=== PATIENT | male | born 1990 | race American Indian/Alaskan Native ===

== ENCOUNTER 2018-10-26 16:29 | Emergency (ER) | payer SELFPAY ==
--- NOTE | 2018-10-26 16:39 | Emergency Department Report ---
Blank Doc - Documentation Documentation: This is a 28-year-old male that presents with midsternum chest pain with radia tion to back. Denies any SOB. This initial assessment/diagnostic orders/clinical plan/treatment(s) is/are subject to change based on patient's health status, clinical progression and re- assessment by fellow clinical providers in the ED. Further treatment and workup at subsequent clinical providers discretion. Patient/guardians urged not to elope from the ED as their condition may be serious if not clinically assessed and managed. Initial orders include: 1- Patient sent to [facility] for further evaluation and treatment 2- labs 3- EKG
[2018-10-26 16:54] LABS: Basophils # (Auto) 0.1 K/mm3 (0.0-0.1); Basophils % (Auto) 0.8 % (0.0-1.8); Eosinophils # (Auto) 0.3 K/mm3 (0.0-0.4); Eosinophils % (Auto) 3.7 % (0.0-4.3); Hematocrit 44.4 % (35.5-45.6); Hemoglobin 14.7 gm/dl (11.8-15.2); Lymphocytes % (Auto) 21.9 % (13.4-35.0); Mean Corpuscular HGB Conc 33 % (32-34); Mean Corpuscular Hemoglobin 27 pg (28-32); Mean Corpuscular Volume 81 fl (84-94); Monocytes # (Auto) 0.9 K/mm3 (0.0-0.8); Monocytes % (Auto) 9.5 % (0.0-7.3); Platelet Count 236 K/mm3 (140-440); Red Blood Count 5.47 M/mm3 (3.65-5.03); Red Cell Distribution Width 13.5 % (13.2-15.2)
[2018-10-26 17:04] LABS: INR 0.86 (0.87-1.13)
[2018-10-26 17:05] LABS: Partial Thromboplastin Time 26.1 Sec. (24.2-36.6)
[2018-10-26 17:29] LABS: Alanine Aminotransferase 17 units/L (7-56); BUN/Creatinine Ratio 9; Blood Urea Nitrogen 12 mg/dL (9-20); Calcium 9.6 mg/dL (8.4-10.2); Hemolysis Index 11
--- NOTE | 2018-10-26 18:08 | XRay Report ---
PROCEDURE: XR CHEST ROUTINE 2V TECHNIQUE: Frontal and lateral views of the chest HISTORY: Chest Pain COMPARISONS: None FINDINGS: Slight linear scar versus atelectasis left lung base There is no visible pulmonary consolidation. No radiographically visible pneumothorax. No evidence of pleural effusion. Cardiac silhouette size is normal without vascular congestion. No visible acute displaced fracture in the regional skeleton. IMPRESSION: Slight linear scar versus atelectasis left lung base This document is electronically signed by Mark Thompson MD., October 26 2018 06:06:41 PM ET
[2018-10-26] MEDS ORDERED: FLEXERIL PO ONE (20:59)
[2018-10-26] MEDS ORDERED: LIDOCAINE VISCOUS 2% PO ONE (20:59)
[2018-10-26] MEDS ORDERED: BENTYL PO ONE (20:59)
[2018-10-26] MEDS ORDERED: TORADOL IM ONE (20:59)
[2018-10-26] MEDS ORDERED: ALUM-MAG HYDROX-SIMETH 200-200-20MG/5ML PO ONE (20:59)
--- NOTE | 2018-10-26 21:05 | Emergency Department Report ---
ED General Adult HPI - General Chief complaint: Chest Pain Stated complaint: BACK/CHEST PAIN Time Seen by Provider: 10/26/18 16:37 Source: patient Mode of arrival: Ambulatory Limitations: No Limitations - History of Present Illness Initial comments: Pt is a 28 yo male who presents to the ED with c/o upper back pain that began yesterday. He also has substernal CP. He describes the pain as burning sensation. 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 The patient states it hurts to take a deep breath. He denies any urinary sx, fever, N/V, SOB, or any other sx. He states he has never had this previously. The patient states his back pain is worse with movements. He denies any fall, trauma, or injury. He denies any PMHx of cardiac problems, HTN, or DM. He denies any family hx of cardiac problems. He denies any recent long travel by car or plane, recent surgery, or recent immobilization. Severity scale (0 -10): 8 - Related Data Previous Rx's Medication Instructions Recorded Last Taken Type Ibuprofen [Motrin 800 MG tab] 800 mg PO TID PRN #60 tablet 07/07/13 Unknown Rx Famotidine [Pepcid] 20 mg PO DAILY #30 tablet 10/26/18 Unknown Rx Allergies Allergy/AdvReac Type Severity Reaction Status Date / Time No Known Allergies Allergy Unverified 07/07/13 21:27 ED Review of Systems ROS: Stated complaint: BACK/CHEST PAIN Other details as noted in HPI Comment: All other systems reviewed and negative ED Past Medical Hx - Past Medical History Hx Asthma: Yes - Social History Smoking Status: Current Every Day Smoker Substance Use Type: Marijuana - Medications Home Medications: Home Medications Medication Instructions Recorded Confirmed Last Taken Type Ibuprofen [Motrin 800 MG tab] 800 mg PO TID PRN #60 tablet 07/07/13 Unknown Rx Famotidine [Pepcid] 20 mg PO DAILY #30 tablet 10/26/18 Unknown Rx ED Physical Exam - General Limitations: No Limitations General appearance: alert, in no apparent distress - Head Head exam: Present: atraumatic, normocephalic - Eye Eye exam: Present: normal appearance - ENT ENT exam: Present: mucous membranes moist - Neck Neck exam: Present: normal inspection, full ROM. Absent: tenderness - Respiratory Respiratory exam: Present: normal lung sounds bilaterally. Absent: respiratory distress, wheezes, rales, rhonchi, stridor, chest wall tenderness, accessory muscle use, decreased breath sounds, prolonged expiratory - Cardiovascular Cardiovascular Exam: Present: regular rate, normal rhythm, normal heart sounds. Absent: systolic murmur, rubs, gallop - GI/Abdominal GI/Abdominal exam: Present: soft, normal bowel sounds. Absent: distended, tenderness, guarding, rebound, rigid - Back Exam Back exam: Present: normal inspection, full ROM, paraspinal tenderness (moderate bilateral T-spine paraspinal muscle tenderness to palpation, no midline c- spine, t-spine, or l-spine tenderness, no deformity, no step off ) - Neurological Exam Neurological exam: Present: alert, oriented X3, normal gait - Psychiatric Psychiatric exam: Present: normal affect, normal mood - Skin Skin exam: Present: warm, dry, intact ED Course Vital Signs 10/26/18 10/26/18 10/26/18 16:37 20:15 22:14 Temperature 98.6 F 98.4 F 98.6 F Pulse Rate 82 82 66 Respiratory 18 16 16 Rate Blood Pressure 135/74 Blood Pressure 132/76 107/60 [Left] O2 Sat by Pulse 97 95 99 Oximetry ED Medical Decision Making - Lab Data Result diagrams: 10/26/18 16:45 10/26/18 16:45 Lab Results 10/26/18 10/26/18 10/26/18 Range/Units 16:45 16:45 16:45 WBC 9.2 (4.5-11.0) K/mm3 RBC 5.47 H (3.65-5.03) M/mm3 Hgb 14.7 (11.8-15.2) gm/dl Hct 44.4 (35.5-45.6) % MCV 81 L (84-94) fl MCH 27 L (28-32) pg MCHC 33 (32-34) % RDW 13.5 (13.2-15.2) % Plt Count 236 (140-440) K/mm3 Lymph % (Auto) 21.9 (13.4-35.0) % [place] % (Auto) 9.5 H (0.0-7.3) % Eos % (Auto) 3.7 (0.0-4.3) % Baso % (Auto) 0.8 (0.0-1.8) % Lymph # 2.0 (1.2-5.4) K/mm3 [place] # 0.9 H (0.0-0.8) K/mm3 Eos # 0.3 (0.0-0.4) K/mm3 Baso # 0.1 (0.0-0.1) K/mm3 Seg Neutrophils % 64.1 (40.0-70.0) % Seg Neutrophils # 5.9 (1.8-7.7) K/mm3 PT 12.2 (12.2-14.9) Sec. INR 0.86 L (0.87-1.13) APTT 26.1 (24.2-36.6) Sec. D-Dimer (0-234) ng/mlDDU Sodium 141 (137-145) mmol/L Potassium 4.0 (3.6-5.0) mmol/L Chloride 100.6 (98-107) mmol/L Carbon Dioxide 28 (22-30) mmol/L Anion Gap 16 mmol/L BUN 12 (9-20) mg/dL Creatinine 1.3 (0.8-1.5) mg/dL Estimated GFR > 60 ml/min BUN/Creatinine Ratio 9 % Glucose 100 (75-100) mg/dL Calcium 9.6 (8.4-10.2) mg/dL Total Bilirubin 0.20 (0.1-1.2) mg/dL AST 13 (5-40) units/L ALT 17 (7-56) units/L Alkaline Phosphatase 69 (35-129) units/L Troponin T < 0.010 (0.00-0.029) ng/mL Total Protein 6.5 (6.3-8.2) g/dL Albumin 4.0 (3.9-5) g/dL Albumin/Globulin Ratio 1.6 % 10/26/18 10/26/18 Range/Units 16:45 19:35 WBC (4.5-11.0) K/mm3 RBC (3.65-5.03) M/mm3 Hgb (11.8-15.2) gm/dl Hct (35.5-45.6) % MCV (84-94) fl MCH (28-32) pg MCHC (32-34) % RDW (13.2-15.2) % Plt Count (140-440) K/mm3 Lymph % (Auto) (13.4-35.0) % [place] % (Auto) (0.0-7.3) % Eos % (Auto) (0.0-4.3) % Baso % (Auto) (0.0-1.8) % Lymph # (1.2-5.4) K/mm3 [place] # (0.0-0.8) K/mm3 Eos # (0.0-0.4) K/mm3 Baso # (0.0-0.1) K/mm3 Seg Neutrophils % (40.0-70.0) % Seg Neutrophils # (1.8-7.7) K/mm3 PT (12.2-14.9) Sec. INR (0.87-1.13) APTT (24.2-36.6) Sec. D-Dimer < 135.0 (0-234) ng/mlDDU Sodium (137-145) mmol/L Potassium (3.6-5.0) mmol/L Chloride (98-107) mmol/L Carbon Dioxide (22-30) mmol/L Anion Gap mmol/L BUN (9-20) mg/dL Creatinine (0.8-1.5) mg/dL Estimated GFR ml/min BUN/Creatinine Ratio % Glucose (75-100) mg/dL Calcium (8.4-10.2) mg/dL Total Bilirubin (0.1-1.2) mg/dL AST (5-40) units/L ALT (7-56) units/L Alkaline Phosphatase (35-129) units/L Troponin T < 0.010 (0.00-0.029) ng/mL Total Protein (6.3-8.2) g/dL Albumin (3.9-5) g/dL Albumin/Globulin Ratio % - EKG Data EKG shows normal: sinus rhythm, axis, intervals, QRS complexes, ST-T waves Rate: normal - Radiology Data Radiology results: report reviewed PROCEDURE: XR CHEST ROUTINE 2V TECHNIQUE: Frontal and lateral views of the chest HISTORY: Chest Pain COMPARISONS: None FINDINGS: Slight linear scar versus atelectasis left lung base There is no visible pulmonary consolidation. No radiographically visible pneumothorax. No evidence of pleural effusion. Cardiac silhouette size is normal without vascular congestion. No visible acute displaced fracture in the regional skeleton. IMPRESSION: Slight linear scar versus atelectasis left lung base This document is electronically signed by Mark Thompson MD., October 26 2018 06 :06:41 PM ET - Medical Decision Making Pt is a 28 yo male who presents to the ED with c/o upper back pain that began yesterday. He also has substernal CP. He describes the pain as burning sensation. 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 The patient states it hurts to take a deep breath. He denies any urinary sx, fever, N/V, SOB, or any other sx. He states he has never had this previously. The patient states his back pain is worse with movements. He denies any fall, trauma, or injury. He denies any PMHx of cardiac problems, HTN, or DM. He denies any family hx of cardiac problems. He denies any recent long travel by car or plane, recent surgery, or recent immobilization. EKG WNL. CXR with atelectasis vs. scarring. Trop negative x2. D-dimer is negative. CP does not appear to be cardiac in nature. Most likely due to acid reflux sx, as chest pain completely resolved with GI cocktail. Paraspinal tenderness in the T-spine consistent with muscle strain. Pt eloped prior to result of d-dimer, did not receive discharge papers, or prescription for pepcid. - Differential Diagnosis GERD, Costochrondritis, muscle spasm, muscle strain Critical care attestation.: If time is entered above; I have spent that time in minutes in the direct care of this critically ill patient, excluding procedure time. ED Disposition Clinical Impression: Muscle strain GERD (gastroesophageal reflux disease) Qualifiers: Esophagitis presence: esophagitis presence not specified Qualified Code(s): K21.9 - Gastro-esophageal reflux disease without esophagitis Disposition: Z-07 ELOPED Is pt being admited?: No Does the pt Need Aspirin: No Condition: Stable Instructions: Muscle Strain (ED), Diet for Ulcers and Gastritis (ED), Gastroesophageal Reflux Disease (ED) Additional Instructions: Follow up with a primary care doctor in the next 2 days. Take medication as prescribed. Return to the ED for any new or worsening symptoms. Prescriptions: Famotidine [Pepcid] 20 mg PO DAILY #30 tablet Referrals: BROOKS ALEXIS MD [Primary Care Provider] - 2-3 Days Time of Disposition: 22:34 Print Language: CYPRIOT
[2018-10-26] MEDS: BENTYL PO ONE ×2 (21:17→21:54)
[2018-10-26 22:15] VITALS: BP 107/60
== END 2018-10-26 22:26 | disposition left against medical advice (07) ==
LOC: ED 16:29
DX: S29.012A Strain of muscle and tendon of back wall of thorax, initial encounter (principal); X50.0XXA Overexertion from strenuous movement or load, initial encounter; Y93.89 Activity, other specified; Y92.69 Other specified industrial and construction area as the place of occurrence of the external cause; Y99.0 Civilian activity done for income or pay; F17.200 Nicotine dependence, unspecified, uncomplicated; F12.10 Cannabis abuse, uncomplicated; J45.909 Unspecified asthma, uncomplicated
CPT/HCPCS: 36415; 71046; 80053; 84484; 85025; 85379; 85610; 85730; 93005; 93010; 96372; 99284; J1885